=== PATIENT | female | born 1955 | race Asian ===

== ENCOUNTER 2016-06-17 09:08 | Outpatient (CLI) | payer OTHER | END 2016-06-17 19:20 | disposition home or self-care (01) | LOC: MAMMO 09:08 | DX: Z12.31 Encounter for screening mammogram for malignant neoplasm of breast (principal) | CPT/HCPCS: G0202-TC ==

== ENCOUNTER 2017-07-21 09:49 | Outpatient (CLI) | payer OTHER | END 2017-07-21 19:14 | disposition home or self-care (01) | LOC: MAMMO 09:49 | DX: Z12.31 Encounter for screening mammogram for malignant neoplasm of breast (principal) ==

== ENCOUNTER 2018-10-03 09:39 | Outpatient (CLI) | payer OTHER | END 2018-10-03 23:01 | disposition home or self-care (01) | LOC: MAMMO 09:39 | DX: Z12.31 Encounter for screening mammogram for malignant neoplasm of breast (principal) ==

== ENCOUNTER 2019-10-15 09:21 | Outpatient (CLI) | payer OTHER | END 2019-10-15 19:22 | disposition home or self-care (01) | LOC: MAMMO 09:21 | DX: Z12.31 Encounter for screening mammogram for malignant neoplasm of breast (principal); M81.0 Age-related osteoporosis without current pathological fracture ==

== ENCOUNTER 2021-03-06 10:19 | Outpatient (CLI) | payer OTHER | END 2021-03-06 20:49 | disposition home or self-care (01) | LOC: MAMMO 10:19 | PROVIDERS: ATTEND Nurse Practitioner Family | DX: Z12.31 Encounter for screening mammogram for malignant neoplasm of breast (principal) ==

== ENCOUNTER 2022-01-13 18:36 | Emergency (ER) | payer OTHER ==
[~2022-01-13] VITALS: Ht 164.5 cm; Wt 45.4 kg
[2022-01-13 19:38] LABS: PLATELET COUNT 299 K/uL (152-353)
[2022-01-13 19:46] LABS: POTASSIUM 3.5 mmol/L (3.6-5.2)
[2022-01-13 20:13] VITALS: BP 102/66; TEMP 98.2
== END 2022-01-13 20:13 | disposition home or self-care (01) ==
LOC: ED 18:36
PROVIDERS: Emergency Medicine Emergency Medical Services
DX: I73.89 Other specified peripheral vascular diseases (principal)
CPT/HCPCS: 80048; 83735; 85027; 99283

== ENCOUNTER 2022-09-24 09:58 | Outpatient (CLI) | payer OTHER | END 2022-09-24 18:58 | disposition home or self-care (01) | LOC: US 09:58 | PROVIDERS: ATTEND Nurse Practitioner Family | DX: K70.30 Alcoholic cirrhosis of liver without ascites (principal) ==